=== PATIENT | male | born 1985 | race African-American/Black ===

== ENCOUNTER 2017-11-13 21:38 | Emergency (ER) | payer SELFPAY ==
[~2017-11-13] VITALS: Ht 165.1 cm; Wt 66.2 kg
[~2017-11-13 21:38] MED LIST: AMOXICILLIN500 MG OR; BACTRIM DS1 TAB OR; CIPRO500 MG OR; LORTAB 5 OR; LORTAB5 PO; NO MEDS; PENICILLN VK500 M1 OR
[2017-11-13 21:48] VITALS: BP 123/81
[2017-11-13] MEDS ORDERED: ACULAR LS0.4 % OS (22:15)
== END 2017-11-13 22:30 | disposition home or self-care (01) | DRG 125 ==
LOC: ED 21:38
DX: S05.02XA Injury of conjunctiva and corneal abrasion without foreign body, left eye, initial encounter (principal); H57.12 Ocular pain, left eye; W22.8XXA Striking against or struck by other objects, initial encounter; Y92.009 Unspecified place in unspecified non-institutional (private) residence as the place of occurrence of the external cause

== ENCOUNTER 2022-07-10 12:10 | Emergency (ER) | payer SELFPAY ==
[2022-07-10] VITALS (9 sets, daily range): BP systolic 113–124; BP diastolic 78–85
[~2022-07-10] VITALS: Ht 167.6 cm; Wt 70.0 kg
[~2022-07-10 12:10] MED LIST changes: +ACULAR LS0.4 % OS; +CYCLOBENZAPRINE10 MG PO; +LORTAB 1010 MG PO; +MEDDOSEPAK PO
[2022-07-10 14:51] LABS: URINE BILIRUBIN - DIPSTICK NEGATIVE (NEGATIVE); URINE BLOOD DIPSTICK NEGATIVE (NEGATIVE); URINE COLOR YELLOW; URINE GLUCOSE - DIPSTICK NEGATIVE (NEGATIVE); URINE KETONE NEGATIVE (NEGATIVE); URINE LEUK ESTERASE NEGATIVE (NEGATIVE); URINE PROTEIN - DIPSTICK NEGATIVE (NEG-TRACE); URINE SPECIFIC GRAVITY <=1.005; URINE UROBILINOGEN - DIPSTICK 0.2 E.U./dL (0.2)
[2022-07-10 14:57] LABS: URINE NITRITE - DIPSTICK NEGATIVE (Negative)
[2022-07-10 14:58] LABS: HEMATOCRIT 43.7 % (39.0-50.0); HEMOGLOBIN 14.9 g/dl (14.0-18.0); IMMATURE GRANULOCYTES 0.2 % (0.0-5.0); MEAN CELL VOLUME 91.2 fL CALC (80.0-100.0); MEAN CORPUSCULAR HGB 31.1 pG CALC (26.0-32.0); MEAN CORPUSCULAR HGB CONC 34.1 g/dL CAL (32.0-36.0); NEUT# 2.85 thou/uL (1.82-7.42); RED BLOOD COUNT 4.79 mill/uL (4.70-6.10); RED CELL DISTRI WIDTH 11.7 % (11.5-15.5)
[2022-07-10 16:16] LABS: AMYLASE 159 u/l (30-110); LIPASE 376 u/l (23-300)
[2022-07-10 16:25] LABS: ALBUMIN 3.9 g/dL (3.2-5.0); ALKALINE PHOSPHATASE 83 u/l (38-126); ANION GAP 9 (6-22 (CALC)); BILIRUBIN, TOTAL 0.5 mg/dL (0.0-1.4); BUN 11 mg/dL (9-20); BUN/CREATININE RATIO 10 (12-20 (CALC)); CARBON DIOXIDE 27 mmol/l (22-30); CHLORIDE 109 mmol/l (95-108); CREATININE 1.1 mg/dL (0.7-1.3); GFR FOR AFR.AMER. > 60 ML/MIN (>=60 (CALC)); GFR OTHER RACES > 60 ML/MIN (>=60 (CALC)); POTASSIUM 3.9 mmol/l (3.5-5.1); SGOT/AST 40 u/l (17-59); SODIUM 141 mmol/l (137-146); TOTAL PROTEIN 6.8 g/dL (6.3-8.2)
[2022-07-10] MEDS ORDERED: PROTONIX40 M2 PO (17:26)
[2022-07-10] MEDS ORDERED: MIRALAX17 GM/SCOO PO (17:26)
== END 2022-07-10 17:35 | disposition home or self-care (01) | DRG 392 ==
LOC: ED 12:10
PROVIDERS: Nurse Practitioner
DX: K29.70 Gastritis, unspecified, without bleeding (principal); K59.00 Constipation, unspecified; F17.200 Nicotine dependence, unspecified, uncomplicated
CPT/HCPCS: Q9967; S0164